=== PATIENT | female | born 1990 | race Caucasian/White ===

== ENCOUNTER 2016-06-25 15:22 | Emergency (ER) | payer OTHER ==
[~2016-06-25] VITALS: Ht 165.1 cm; Wt 68.0 kg
[2016-06-25 15:48] LABS: ABSOLUTE BASOPHIL COUNT 0 /CUMM (0.0-0.2); ABSOLUTE EOSINOPHIL COUNT 0 /CUMM (0.0-0.7); ABSOLUTE LYMPH COUNT 1.6 /CUMM (1.2-3.4)
[2016-06-25 15:52] LABS: ABSOLUTE GRANULOCYTE CT 3.6 /CUMM (1.4-6.5); ABSOLUTE MONOCYTE COUNT 0.4 /CUMM (0.10-0.60); BASOPHIL % 0.4 % (0.0-2.0); EOSINOPHIL % 0.6 % (0-5); HEMATOCRIT 41.7 % (37-47); MEAN CORPUSCULAR HGB 32.3 PG (27.0-31.0); MEAN CORPUSCULAR VOLUME 94.9 FL (81.0-99.0); PLATELET COUNT 82 /CUMM (130-400)
[2016-06-25 16:05] LABS: MEAN PLATELET VOLUME 10.5 FL (7.4-10.4); WHITE BLOOD CELL COUNT 6.1 /CUMM (4.8-10.8)
--- NOTE | 2016-06-25 17:41 | ED GI/GU/ABDOMINAL COMPLAINT ---
History of Present Illness General Chief Complaint: Abdominal Pain/Flank Pain Stated Complaint: SENT BY MD TO R/O APPENDICITIS/DIVERTICULITIS Source: patient Exam Limitations: no limitations Vital Signs & Intake/Output Vital Signs & Intake/Output Vital Signs Date Time Temp Pulse Resp B/P B/P Pulse O2 O2 Flow FiO2 Mean Ox Delivery Rate 06/25 1816 98 Room Air 06/25 1530 97.1 810 18 125/79 98 Room Air Allergies Coded Allergies: NO KNOWN ALLERGIES (06/26/10) Triage Note: PT STATES THAT SHE WENT TO HER PMD DUE TO SHE HAS BEEN HAVING MID ABD PAIN SINCE LAST WEDNESDAY, STATES THAT SHE HAS BLOODY DIARHEA AND VOMITTED BLOOD ON THAT DAY , BUT NONE SINCE. PT STATES THAT PAIN IS DULL NOW. PMD TOLD HER TO COME TO ER DUE TO IT WOULD TAKE TO LONG TO GET CT APPROVED FOR HER Triage Nurses Notes Reviewed? yes ? n Is pt currently ? No HPI: Patient is a 25-year-old female sent in by her primary doctor for evaluation of lower abdominal pain. Patient reports pain has been for approximately 3-4 days. Patient initially had bloody stool and bloody emesis. That has resolved. Today patient was seen by her primary doctor and was sent in for further evaluation. Pain is primarily suprapubic and left lower quadrant. Patient has never had pain similar to this before pain is sharp and dull is currently 2 out of 10. Patient denies fevers, chills, urinary symptoms. (RONNY GENAO) Reconcile Medications No Known Home Medications (PAMELA CHAIDEZ PA-C) Past History Travel History Traveled to [place] past 21 day No Medical History Any Pertinent Medical History? none Neurological: NONE EENT: NONE Cardiovascular: NONE Respiratory: NONE Gastrointestinal: NONE Hepatic: NONE Renal: NONE Musculoskeletal: NONE Psychiatric: NONE Endocrine: NONE Blood Disorders: NONE Cancer(s): NONE HEAD OF TRAINING AND DEVELOPMENT/Reproductive: OVARIAN CYST Surgical History Surgical History: non-contributory Psychosocial History What is your primary language Yoruba Tobacco Use: Never used ETOH Use: denies use Illicit Drug Use: denies illicit drug use Family History Hx Contributory? No (RONNY GENAO) Review of Systems Review of Systems Constitutional: Denies: chills, fever. EENTM: Reports: no symptoms. Respiratory: Denies: cough, short of breath. Cardiovascular: Denies: chest pain. GI: Reports: see HPI. Genitourinary: Reports: no symptoms. Musculoskeletal: Reports: no symptoms. Skin: Reports: no symptoms. Neurological/Psychological: Reports: no symptoms. Hematologic/Endocrine: Reports: no symptoms. Immunologic/Allergic: Reports: no symptoms. (RONNY GENAO) Physical Exam Physical Exam General Appearance: well developed/nourished, alert, awake Head: atraumatic, normal appearance Eyes: Bilateral: normal appearance, PERRL, EOMI. Ears, Nose, Throat, Mouth: hearing grossly normal, moist mucous membrane Neck: normal inspection, supple, full range of motion Respiratory: normal breath sounds, chest non-tender, no respiratory distress, lungs clear Cardiovascular: regular rate/rhythm Gastrointestinal: normal bowel sounds, soft, mild left lower quadrant tenderness. Negative McBurney's point tenderness, negative Lima sign Back: normal inspection, normal range of motion, no CVA tenderness Extremities: normal range of motion Neurologic/Psych: no motor/sensory deficits, awake, alert, oriented x 3, normal gait, normal mood/affect Skin: intact, normal color, warm/dry Core Measures ACS in differential dx? No Severe Sepsis Present: No Septic Shock Present: No (RONNY GENAO) Progress Differential Diagnosis: appendicitis, biliary colic, cholecystitis, diverticulitis, inflamm bowel dis, ovarian cyst, ovarian torsion Initial ED EKG: none Hand-Off Endorsed To: PAMELA CHAIDEZ PA-C Pending: CT (RONNY GENAO) Plan of Care: Orders Procedure Date/time Status URINE 06/25 154 Complete URINALYSIS 06/25 1533 Complete LACTIC ACID 06/25 153 Complete COMPREHENSIVE METABOLIC PANEL 06/25 1533 Complete CBC WITHOUT DIFFERENTIAL 06/25 1533 Complete Laboratory Tests 06/25/16 1544: Urine Test NEGATIVE 06/25/16 1544: Urine Color YEL, Urine Clarity CLEAR, Urine pH 6.0, Ur Specific Bear 1.010, Urine Protein NEG, Urine Ketones NEG, Urine Nitrite NEG, Urine Bilirubin NEG, Urine Urobilinogen 0.2, Ur Leukocyte Esterase NEG, Ur Microscopic SEDIMENT EXAMINED, Urine RBC RARE, Ur Epithelial Cells MOD H, Urine Bacteria MOD H, Urine Hemoglobin TRACE-INTACT, Urine Glucose NEG 06/25/16 1539: Anion Gap 10, Estimated GFR > 60, BUN/Creatinine Ratio 10.0, Glucose 90, Lactic Acid 0.6 L, Calcium 9.8, Total Bilirubin 1.0, AST 22, ALT 34, Alkaline Phosphatase 50, Total Protein 7.6, Albumin 4.7, Globulin 2.9, Albumin/Globulin Ratio 1.6, CBC w Diff NO MAN DIFF REQ, RBC 4.40, MCV 94.9, MCH 32.3 H, RDW 13.0 , MPV 10.5 H, Gran % 64.0, Lymphocytes % 27.7, Monocytes % 7.3, Eosinophils % 0.6, Basophils % 0.4, Absolute Granulocytes 3.6, Absolute Lymphocytes 1.6, Absolute Monocytes 0.4, Absolute Eosinophils 0, Absolute Basophils 0, PUBS MCHC 34.0 Patient declined pain medication on initial exam. Signed out to Pamela Chaidez PA-C at [address] scan pending. (MAGUE HEATH,RONNY) Diagnostic Imaging: Viewed by Me: CT Scan. Discussed w/RAD: CT Scan. Radiology Impression: PATIENT: ALEX ARCOS PRESENT AGE: 25 PATIENT ACCOUNT NO: [id number] : 88 LOCATION: [facility] ORDERING PHYSICIAN: RONNY HEATH SERVICE DATE: 06/25/16 EXAM TYPE: CAT - CT ABD & PELVIS W ORAL & IV CO EXAMINATION: CT ABDOMEN AND PELVIS WITH CONTRAST CLINICAL INFORMATION: Left lower abdominal pain. Bloody emesis and stool. Evaluate for colitis. COMPARISON: Outside CT abdomen and pelvis dated . TECHNIQUE: Multidetector volumetric imaging was performed of the abdomen and pelvis before and after the IV administration of 95 mL of Optiray 320 intravenous contrast. Sagittal and coronal reformatted images were obtained on the technologist's workstation. DLP: 291.52 mGy-cm. FINDINGS: LUNG BASES: The visualized lung bases are unremarkable. LIVER, GALLBLADDER, AND BILIARY TREE: The liver is normal in size, shape, and attenuation. No focal hepatic lesion or biliary ductal dilatation is present. The gallbladder is unremarkable with no evidence of radiopaque gallstones, gallbladder wall thickening, or obvious pericholecystic inflammatory changes. PANCREAS: Unremarkable. SPLEEN: Unremarkable. ADRENAL GLANDS: Unremarkable. KIDNEYS AND URETERS: The right kidney is again noted to be atrophic with irregular contour and inferior displacement, not significantly changed since the prior examination. Two nonobstructing 3-4 mm calcifications are noted within the midpole. There is no right-sided hydronephrosis or nephrolithiasis. The the left kidney is normal in size, shape, and attenuation. No left-sided hydronephrosis, hydroureter, or calculi seen. No perinephric stranding. BLADDER: Unremarkable. GASTROINTESTINAL TRACT: Oral contrast reaches the colon. There is no large or small bowel obstruction. The appendix is normal. There is no intra-abdominal free air. The previously seen intra-abdominal ascites is no longer identified. ABDOMINAL WALL: No significant hernia is appreciated. LYMPH NODES: Normal. VASCULAR: The abdominal aorta is nondilated. Contrast opacifies the abdominal aorta and its branch vessels. PELVIC VISCERA: The uterus and adnexa are unremarkable. OSSEOUS STRUCTURES: No lytic or blastic osseous lesion. IMPRESSION: 1. No hydronephrosis or nephrolithiasis. 2. No large or small bowel obstruction. 3. Normal appendix. DICTATED BY: JOSE LUIS SMITH MD DATE/TIME DICTATED:06/25/162024 DIRECTOR OF VOCATIONAL GUIDANCE:SUE DATE/TIME TRANSCRIBED:06/25/162024 CONFIDENTIAL, DO NOT COPY WITHOUT APPROPRIATE AUTHORIZATION. <Electronically signed in Other Vendor System> SIGNED BY: JOSE LUIS SMITH MD 06/25/162100 Comments: 06/25/2016 8:53:14 PM: PATENT SIGNED OUT TO ME BY KUMAR BOWSER AT CHANGE OF SHIFT. PENDING CT OF ABDOMEN AND PELVIS TO RULE OUT APPENDICITIS VERSUS DIVERTICULITIS. PATIENT HAS NOT REQUIRED ANY MEDICAITON FOR PAIN THROUGHOUT HER ER VISIT. (KAYLYNN KEY,PAMELA) Departure Departure Condition: Stable Departure Forms: Customer Survey General Discharge Information (RONNY GENAO) Departure Disposition: HOME OR SELF CARE Clinical Impression Primary Impression: Abdominal pain Qualifiers: Abdominal location: left lower quadrant Qualified Code: R10.32 - Left lower quadrant pain Referrals: GERALDINE UMAÑA,MARIELA Baires (PCP/Family) ALFRED GRACE,JORGE Segura Additional Instructions: please follow-up with the log skidder whose information has been provided in this packet. return for any worsening symptoms or concerns. Prescriptions: Current Visit Scripts No Known Home Medications (PAMELA CHAIDEZ PA-C)
--- NOTE | 2016-06-25 21:01 | CT SCAN REPORT ---
EXAMINATION: CT ABDOMEN AND PELVIS WITH CONTRAST CLINICAL INFORMATION: Left lower abdominal pain. Bloody emesis and stool. Evaluate for colitis. COMPARISON: Outside CT abdomen and pelvis dated 11/05/2008. TECHNIQUE: Multidetector volumetric imaging was performed of the abdomen and pelvis before and after the IV administration of 95 mL of Optiray 320 intravenous contrast. Sagittal and coronal reformatted images were obtained on the technologist's workstation. DLP: 291.52 mGy-cm. FINDINGS: LUNG BASES: The visualized lung bases are unremarkable. LIVER, GALLBLADDER, AND BILIARY TREE: The liver is normal in size, shape, and attenuation. No focal hepatic lesion or biliary ductal dilatation is present. The gallbladder is unremarkable with no evidence of radiopaque gallstones, gallbladder wall thickening, or obvious pericholecystic inflammatory changes. PANCREAS: Unremarkable. SPLEEN: Unremarkable. ADRENAL GLANDS: Unremarkable. KIDNEYS AND URETERS: The right kidney is again noted to be atrophic with irregular contour and inferior displacement, not significantly changed since the prior examination. Two nonobstructing 3-4 mm calcifications are noted within the midpole. There is no right-sided hydronephrosis or nephrolithiasis. The the left kidney is normal in size, shape, and attenuation. No left-sided hydronephrosis, hydroureter, or calculi seen. No perinephric stranding. BLADDER: Unremarkable. GASTROINTESTINAL TRACT: Oral contrast reaches the colon. There is no large or small bowel obstruction. The appendix is normal. There is no intra-abdominal free air. The previously seen intra-abdominal ascites is no longer identified. ABDOMINAL WALL: No significant hernia is appreciated. LYMPH NODES: Normal. VASCULAR: The abdominal aorta is nondilated. Contrast opacifies the abdominal aorta and its branch vessels. PELVIC VISCERA: The uterus and adnexa are unremarkable. OSSEOUS STRUCTURES: No lytic or blastic osseous lesion. IMPRESSION: 1. No hydronephrosis or nephrolithiasis. 2. No large or small bowel obstruction. 3. Normal appendix.
[2016-06-25 21:25] VITALS: BP 108/62
== END 2016-06-25 21:27 ==
LOC: ERH 15:22
PROVIDERS: Emergency Medicine
DX: R10.32 Left lower quadrant pain (principal)
CPT/HCPCS: 74177; 81001; 81025